=== PATIENT | female | born 1990 | race Hispanic/Latino ===

== ENCOUNTER 2019-01-08 07:30 | Inpatient (IN) | payer MEDICAID ==
[~2019-01-08] VITALS: Ht 149.9 cm; Wt 66.7 kg
[2019-01-12 11:11] LABS: HEMATOCRIT 43.1 % (36-48); MEAN CORPUSCULAR HEMOGLOBIN 32.4 pg (27.0-33.0); MEAN CORPUSCULAR HGB CONC 34.8 g/dL (32.0-36.0); MEAN CORPUSCULAR VOLUME 92.9 fL (79-99); NUCLEATED RED BLOOD CELLS 0.1 % (0.0-0.19); PLATELET COUNT (AUTO) 167 K/uL (130-400); RED BLOOD CELL COUNT(AUTO) 4.64 MIL/uL (4.00-5.50); RED CELL DISTRIBUTION WIDTH 14.8 % (11.0-15.5); WHITE BLOOD COUNT (AUTO) 5.9 K/uL (4.8-10.8)
[2019-01-13 06:10] LABS: HEPATITIS Bs ANTIGEN SCREEN P Negative (Negative)
[2019-01-14] MEDS ORDERED: CEFAZOLIN SODIUM 1 GM VIAL IVP PRN (05:45)
[2019-01-14] MEDS ORDERED: LACTATED RINGERS 1000ML 1,000 ML IV SCH (05:45)
[2019-01-14] MEDS ORDERED: PREN1TAB80 PO (06:44)
[2019-01-14] MEDS ORDERED: CALDOLOR 800MG+NS 250ML 250 ML IV ONE (07:11)
[2019-01-14] MEDS ORDERED: CALDOLOR 800MG+NS 250ML 250 ML IV SCH (07:16)
[2019-01-14] MEDS ORDERED: OXYTOCIN 10 USP UNITS/ML ONE (07:41)
[2019-01-14] MEDS ORDERED: DEXAMETHASONE SOD PHOSPHATE 10MG/ML 1ML VIAL ONE (07:41)
[2019-01-14] MEDS ORDERED: ONDANSETRON HCL 4 MG/2 ML VIAL ONE (07:41)
[2019-01-14] MEDS ORDERED: DURAMORPH PF1 MG/ML 10ML AMP IV ONE (07:41)
[2019-01-14] MEDS ORDERED: FENTANYL CITRATE PF 50 MCG/1 ML 2ML VIAL ONE (07:41)
[2019-01-14] MEDS ORDERED: EPHEDRINE SULFATE 50 MG/ML AMPULE ONE (08:18)
[2019-01-14] MEDS ORDERED: PROMETHAZINE HCL 25 MG/ML 1ML AMPULE IM PRN (09:15)
[2019-01-14] MEDS ORDERED: MEPERIDINE-PF 75 MG/ML SYG IM PRN (09:15)
[2019-01-14] MEDS ORDERED: OXYTOCIN-LR 20 UNITS/1000 ML 1,000 ML IV PRN (09:15)
[2019-01-14] MEDS ORDERED: SODIUM CHLORIDE 0.9% 10 ML VIAL IVP PRN (09:15)
[2019-01-14] MEDS ORDERED: NALOXONE HCL 0.4 MG/1 ML ML IVP PRN ×3 (10:00)
[2019-01-14] MEDS ORDERED: ONDANSETRON HCL 4 MG/2 ML VIAL IVP PRN (10:00)
[2019-01-14] MEDS ORDERED: DiphenhydrAMINE HCL 50 MG/ML VIAL IVP PRN (10:00)
[2019-01-14 11:05] VITALS: BP 153/80
--- NOTE | 2019-01-14 11:15 | NUR ---
PT ARRIVED FROM L&D VIA BED AAOX3. FUNDUS IS FIRM, BLEEDING IS SCANT. OB PAD CLEAN. DRESSING IS DRY AND INTACT. SCDS APPLIED TO LOWER BILATERAL EXTREMITIES. PT C/O ITCHING. WILL MEDICATE WITH BENADRYL 25MG IVP.
--- NOTE | 2019-01-14 12:20 | NUR ---
PT STATES ITCHING HAS RESOLVED RATES ITCHING 2 ON A SCALE OF 0-10. DENIES PAIN AT THIS MOMENT.
--- NOTE | 2019-01-14 13:45 | NUR ---
PATIENT LAYING IN BED SUPINE STATES SHE FELT A GUSH WHEN SHE MOVED. FUNDUS ASSESSED, IS FIRM BLEEDING IS SMALL. NO CLOTS EXPELLED. ADVISED PATIENT TO CONTINUE TURNING ON HER SIDES. CALL LIGHT LEFT IN REACH ADVISED PT TO CALL WITH ANY NEEDS OR CONCERNS.
[2019-01-14 16:49] VITALS: BP 128/70
[2019-01-14] MEDS: DEXTROSE 5 %-0.45 % NACL 1,000 ML IV PRN (16:55)
[2019-01-14] MEDS: CALDOLOR 800MG+NS 250ML 250 ML IV SCH (16:55)
[2019-01-14 19:35] VITALS: BP 101/56
[2019-01-14 23:13] VITALS: BP 123/59
[2019-01-15] MEDS: CALDOLOR 800MG+NS 250ML 250 ML IV SCH (01:13)
[2019-01-15] MEDS: DEXTROSE 5 %-0.45 % NACL 1,000 ML IV PRN (01:17)
--- NOTE | 2019-01-15 03:15 | NUR ---
[facility] CAT[employer]TER F/C REMOVED , INTACT, ASSISTED TO SIDE OF BED, TOLERATED WELL Addendum: 01/15/19 at 0327 by RONAK ZHU LVN Amended: Links added.
[2019-01-15 04:07] VITALS: BP 112/66
[2019-01-15 06:23] LABS: HEMATOCRIT 39.3 % (36-48); MEAN CORPUSCULAR HEMOGLOBIN 32.2 pg (27.0-33.0); MEAN CORPUSCULAR HGB CONC 34.8 g/dL (32.0-36.0); MEAN CORPUSCULAR VOLUME 92.5 fL (79-99); PLATELET COUNT (AUTO) 138 K/uL (130-400); RED BLOOD CELL COUNT(AUTO) 4.25 MIL/uL (4.00-5.50); RED CELL DISTRIBUTION WIDTH 14.5 % (11.0-15.5)
[2019-01-15 07:38] VITALS: BP 116/66
[2019-01-15] MEDS ORDERED: ACETAMINOPHEN EXTRA STRENGTH 500 MG TABLET PO PRN (07:45)
[2019-01-15] MEDS ORDERED: HYDROCODONE/ACETAMINOPHEN 5/325 MG TAB PO PRN (07:45)
[2019-01-15] MEDS ORDERED: ACETAMINOPHEN-CODEINE 300/30MG TAB PO PRN (07:45)
[2019-01-15] MEDS ORDERED: IBUPROFEN 600 MG TABLET PO PRN (07:45)
[2019-01-15] MEDS ORDERED: BISACODYL 10 MG SUPP.RECT RC PRN (07:45)
[2019-01-15] MEDS: SIMETHICONE 80 MG TAB.CHEW PO PRN ×4 (09:27→20:51)
[2019-01-15] MEDS: DOCUSATE SODIUM 100 MG CAP PO SCH ×2 (09:27→20:51)
[2019-01-15] MEDS: IBUPROFEN 800 MG TAB PO SCH ×2 (09:30→17:09)
[2019-01-15 12:10] VITALS: BP 118/72
[2019-01-15 16:21] VITALS: BP 113/67
[2019-01-15 19:20] VITALS: BP 118/68
[2019-01-15 23:20] VITALS: BP 120/67
[2019-01-16] MEDS: IBUPROFEN 800 MG TAB PO SCH ×2 (01:08→09:17)
[2019-01-16 03:20] VITALS: BP 118/57
[2019-01-16 07:50] VITALS: BP 123/71
[2019-01-16] MEDS: DOCUSATE SODIUM 100 MG CAP PO SCH (09:15)
[2019-01-16] MEDS: SIMETHICONE 80 MG TAB.CHEW PO PRN (09:15)
--- NOTE | 2019-01-16 09:15 | NUR ---
DR. DENT IN TO SEE PATIENT AND WAS MADE AWARE OF DISCHARGE ORDER GIVEN YESTERDAY FOR PATIENT TO BE DISCHARGED THIS A.M. SCRIPT WAS LEFT FOR PATIENT FOR HOME CARE.
--- NOTE | 2019-01-16 10:00 | NUR ---
PATIENT WAS GIVEN DISCHARGE INSTRUCTIONS AND SCRIPT FOR PAIN MANAGEMENT AFTER DISCHARGE. VERBALIZED UNDERSTANDING DOSAGE AND FREQUENCY OF HOME MEDS.
--- NOTE | 2019-01-16 11:40 | NUR ---
PATIENT WAS TAKEN VIA W/C TO FAMILY VEHICLE CARRYING BABY IN ARMS. PATIENT AND BABY DISCHARGED TO SPOUSE. PATIENT STABLE AND DENIES PAIN.
== END 2019-01-16 11:40 | disposition home or self-care (01) | DRG 539 ==
LOC: EDSTATUS 01-12 10:00 → LDH 01-14 05:36 → WSH 01-14 11:05
PROVIDERS: ADMIT Obstetrics & Gynecology; ATTEND Obstetrics & Gynecology
PROC: 0UB70ZZ Excision of Bilateral Fallopian Tubes, Open Approach (ICD-10-PCS; 2019-01-14)
PROC: 10D00Z1 Extraction of Products of Conception, Low, Open Approach (ICD-10-PCS; principal; 2019-01-14 08:00)
DX: O34.211 Maternal care for low transverse scar from previous cesarean delivery (principal); K21.9 Gastro-esophageal reflux disease without esophagitis; K66.0 Peritoneal adhesions (postprocedural) (postinfection); O99.89 Other specified diseases and conditions complicating pregnancy, childbirth and the puerperium; O99.62 Diseases of the digestive system complicating childbirth; O24.420 Gestational diabetes mellitus in childbirth, diet controlled; O69.81X0 Labor and delivery complicated by cord around neck, without compression, not applicable or unspecified; Z37.0 Single live birth; Z3A.39 39 weeks gestation of pregnancy; Z30.2 Encounter for sterilization
CPT/HCPCS: 36415; 59510; 82948; 85027; 86592; 86850; 86900; 86901; 87340; 88302; A4344; A4450; G0378; J0690; J1100; J1200; J1741; J2274; J2405; J2590; J3010; J3490; J7120